=== PATIENT | female | born 1955 | race Caucasian/White ===

== ENCOUNTER 2017-12-13 11:40 | Emergency (ER) | payer BC ==
[~2017-12-13 11:40] MED LIST: ASAC400T OR; OXYC-360 PO; POTA25TA4 PO; PRED20 PO
[2017-12-13 11:43] VITALS: BP 165/88; PULSE 100; RESP 16; TEMP 97.5
[2017-12-13] MEDS ORDERED: ONDANSETRON HCL 4 MG/2 ML VIAL IVP ONE (12:15)
[2017-12-13] MEDS ORDERED: SODIUM CHLOR 0.9% 1000 ML INJ 1,000 ML IV ONE ×3 (12:15→14:15)
[2017-12-13] MEDS ORDERED: SODIUM CHLORIDE 0.9% FLUSH 10 ML FLUSH IV FLUSH PRN (12:15)
--- NOTE | 2017-12-13 12:19 | PD ---
HPI Chief Complaint: GI Complaint Time Seen by Provider: 12:07 Travel History International Travel<30 days: Yes Contact w/Intl Traveler<30days: Yes Name of Country Traveled to: [place] 12-09-17 Traveled to known affect area: No History of Present Illness HPI The patient was seen and examined in the presence of the nurse. This patient complains of feeling nauseous and having vomiting. She is worried about dehydration. She saw her primary physician this morning and was sent here. She is not having abdominal pain or fever. She has chronic diarrhea and history of ulcerative colitis. Severity is moderate. Duration 3 days. No alleviating factors. No Exacerbating factors. PFSH Past Medical History Asthma: No Autoimmune Disease: No COPD: No Diminished Hearing: No Gastrointestinal Disorders: Yes (ULCERATIVE COLITIS) Hiatal Hernia: Yes Tetanus Vaccination: Unknown Menopausal: Yes Social History Alcohol Use: Yes (2 GLASSES OF WINE PER WEEK) Tobacco Use: Yes (11/29 PPD) Substance Use: No Allergies-Medications (Allergen,Severity, Reaction): Coded Allergies: metronidazole (Unverified Allergy, Mild, 12/13/17) Reported Meds & Prescriptions Reported Meds & Active Scripts Active Reported Ondansetron (Ondansetron HCl) 8 Mg Tab 8 Mg PO TID Alprazolam 0.25 Mg Tab 0.25 Mg PO Q8H PRN Review of Systems General / Constitutional: No: Fever Eyes: No: Visual changes HENT: No: Headaches Cardiovascular: No: Chest Pain or Discomfort Respiratory: No: Shortness of Breath Gastrointestinal: Positive: Nausea, Vomiting, No: Abdominal Pain Genitourinary: No: Dysuria Musculoskeletal: No: Pain Skin: No Rash Neurologic: No: Weakness Psychiatric: No: Depression Endocrine: No: Polydipsia Hematologic/Lymphatic: No: Easy Bruising Physical Exam Narrative GENERAL: Well-nourished, well-developed patient in no apparent distress. SKIN: Focused skin assessment reveals no rash and nodules. Skin is Warm and dry. HEAD: Atraumatic. Normocephalic. EYES: Pupils equal and round. No scleral icterus. No injection or drainage. ENT: No nasal bleeding or discharge. Mucous membranes pink and moist. NECK: Trachea midline. No JVD. CARDIOVASCULAR: Regular rate and rhythm. No murmur appreciated. RESPIRATORY: No accessory muscle use. Clear to auscultation. Breath sounds equal bilaterally. GASTROINTESTINAL: Abdomen soft, non-tender, nondistended. Hepatic and splenic margins not palpable. MUSCULOSKELETAL: No obvious deformities. No clubbing. No cyanosis. No edema. NEUROLOGICAL: Awake and alert. No obvious cranial nerve deficits. Motor grossly within normal limits. Normal speech. PSYCHIATRIC: Appropriate mood and affect; insight and judgment normal. Data Data Last Documented VS Vital Signs Date Time Temp Pulse Resp B/P (MAP) Pulse Ox O2 Delivery O2 Flow Rate FiO2 12/13/17 11:43 97.5 100 16 165/88 (113) Orders Orders Complete Blood Count With Diff (12/13/17 12:14) Comprehensive Metabolic Panel (12/13/17 12:14) Lipase (12/13/17 12:14) Urinalysis - C+S If Indicated (12/13/17 12:14) Iv Access Insert/Monitor (12/13/17 12:14) NPO (12/13/17 12:14) Ondansetron Inj (Zofran Inj) (12/13/17 12:15) Sodium Chloride 0.9% Flush (Ns Flush) (12/13/17 12:15) Sodium Chlor 0.9% 1000 Ml Inj (Ns 1000 M (12/13/17 12:15) Labs Laboratory Tests Test 12/13/17 12:31 White Blood Count 11.8 TH/MM3 Red Blood Count 4.55 MIL/MM3 Hemoglobin 15.1 GM/DL Hematocrit 45.5 % Mean Corpuscular Volume 100.1 FL Mean Corpuscular Hemoglobin 33.2 PG Mean Corpuscular Hemoglobin Concent 33.1 % Red Cell Distribution Width 13.1 % Platelet Count 217 TH/MM3 Mean Platelet Volume 7.7 FL Neutrophils (%) (Auto) 88.3 % Lymphocytes (%) (Auto) 5.5 % Monocytes (%) (Auto) 5.3 % Eosinophils (%) (Auto) 0.2 % Basophils (%) (Auto) 0.7 % Neutrophils # (Auto) 10.4 TH/MM3 Lymphocytes # (Auto) 0.6 TH/MM3 Monocytes # (Auto) 0.6 TH/MM3 Eosinophils # (Auto) 0.0 TH/MM3 Basophils # (Auto) 0.1 TH/MM3 CBC Comment DIFF FINAL Differential Comment MDM Medical Decision Making Medical Screen Exam Complete: Yes Emergency Medical Condition: Yes Medical Record Reviewed: Yes Differential Diagnosis Colitis, dehydration, electrolyte abnormality Narrative Course I have reviewed the patient's electronic medical record. Reviewed her history and physical from today's earlier outpatient primary physician visit. Dipstick urine did show ketones IV placed CBC is normal BMP) the rest of the labs are pending LFTs Lipase Urinalysis I gave her IV Zofran and 1 L normal saline IV bolus Abdomen is soft and benign and nontender I suspect this patient will be able to be hydrated and discharged but Dr. Larios will review the labs and assist with disposition Solo Nath MD Dec 13, 2017 12:19
[2017-12-13 12:40] LABS: AUTOMATED NEUTROPHIL # 10.4 TH/MM3 (1.8-7.7); BASOPHIL # 0.1 TH/MM3 (0-0.2); BASOPHIL % 0.7 % (0.0-2.0); EOSINOPHIL % 0.2 % (0.0-4.0); HEMATOCRIT 45.5 % (35.0-46.0); HEMOGLOBIN 15.1 GM/DL (11.6-15.3); LYMPH % 5.5 % (9.0-44.0); LYMPHOCYTE # 0.6 TH/MM3 (1.0-4.8); MEAN CELL VOLUME 100.1 FL (80.0-100.0); MEAN CORPUSCULAR HEMOGLOBIN 33.2 PG (27.0-34.0); MEAN CORPUSCULAR HGB CONC 33.1 % (32.0-36.0); MEAN PLATELET VOLUME 7.7 FL (7.0-11.0); MONO % 5.3 % (0.0-8.0); MONOCYTE # 0.6 TH/MM3 (0-0.9); NEUT % 88.3 % (16.0-70.0); PLATELET COUNT 217 TH/MM3 (150-450); RED BLOOD COUNT 4.55 MIL/MM3 (4.00-5.30); RED CELL DISTRIBUTION WIDTH 13.1 % (11.6-17.2); WHITE BLOOD COUNT 11.8 TH/MM3 (4.0-11.0)
[2017-12-13] MEDS ORDERED: ONDA8TAB7 PO (12:47)
[2017-12-13] MEDS ORDERED: ALPR0.25 PO (12:47)
[2017-12-13 13:04] LABS: CHLORIDE 103 MEQ/L (98-107); SODIUM (NA) 140 MEQ/L (136-145)
[2017-12-13 13:07] LABS: ALBUMIN 3.2 GM/DL (3.4-5.0); CALCIUM 9.3 MG/DL (8.5-10.1); LIPASE 103 U/L (73-393)
[2017-12-13 13:08] LABS: BLOOD UREA NITROGEN 10 MG/DL (7-18); GLUCOSE,RANDOM 89 MG/DL (74-106)
[2017-12-13 13:10] LABS: ALT (GPT) 49 U/L (10-53); AST (GOT) 73 U/L (15-37); CREATININE 0.57 MG/DL (0.50-1.00); GLOMERULAR FILTRATION RATE 107 ML/MIN (>89)
[2017-12-13 13:12] LABS: TOTAL BILIRUBIN ADULT 0.6 MG/DL (0.2-1.0); TOTAL PROTEIN 7.2 GM/DL (6.4-8.2)
[2017-12-13 13:13] LABS: ALKALINE PHOSPHATASE 142 U/L (45-117)
--- NOTE | 2017-12-13 13:18 | PD ---
Physical Exam Date Seen by Provider: Dec 13, 2017 Time Seen by Provider: 13:17 Narrative The patient is a 62-year-old female who is initially evaluated by the previous physician. Please refer to the initial history, physical, diagnostic evaluation, and treatment modality plan. Data Data Last Documented VS Vital Signs Date Time Temp Pulse Resp B/P (MAP) Pulse Ox O2 Delivery O2 Flow Rate FiO2 12/13/17 14:17 94 18 137/84 (101) 97 Room Air 12/13/17 11:43 97.5 Orders Orders Complete Blood Count With Diff (12/13/17 12:14) Comprehensive Metabolic Panel (12/13/17 12:14) Lipase (12/13/17 12:14) Urinalysis - C+S If Indicated (12/13/17 12:14) Iv Access Insert/Monitor (12/13/17 12:14) NPO (12/13/17 12:14) Ondansetron Inj (Zofran Inj) (12/13/17 12:15) Sodium Chloride 0.9% Flush (Ns Flush) (12/13/17 12:15) Sodium Chlor 0.9% 1000 Ml Inj (Ns 1000 M (12/13/17 12:15) Sodium Chlor 0.9% 1000 Ml Inj (Ns 1000 M (12/13/17 13:00) Morphine Inj (Morphine Inj) (12/13/17 13:30) Sodium Chlor 0.9% 1000 Ml Inj (Ns 1000 M (12/13/17 14:15) Urine Culture (12/13/17 13:55) Ceftriaxone Inj (Rocephin Inj) (12/13/17 14:45) Ondansetron Odt (Zofran Odt) (12/13/17 15:00) Labs Laboratory Tests Test 12/13/17 12:31 12/13/17 13:55 White Blood Count 11.8 TH/MM3 Red Blood Count 4.55 MIL/MM3 Hemoglobin 15.1 GM/DL Hematocrit 45.5 % Mean Corpuscular Volume 100.1 FL Mean Corpuscular Hemoglobin 33.2 PG Mean Corpuscular Hemoglobin Concent 33.1 % Red Cell Distribution Width 13.1 % Platelet Count 217 TH/MM3 Mean Platelet Volume 7.7 FL Neutrophils (%) (Auto) 88.3 % Lymphocytes (%) (Auto) 5.5 % Monocytes (%) (Auto) 5.3 % Eosinophils (%) (Auto) 0.2 % Basophils (%) (Auto) 0.7 % Neutrophils # (Auto) 10.4 TH/MM3 Lymphocytes # (Auto) 0.6 TH/MM3 Monocytes # (Auto) 0.6 TH/MM3 Eosinophils # (Auto) 0.0 TH/MM3 Basophils # (Auto) 0.1 TH/MM3 CBC Comment DIFF FINAL Differential Comment Blood Urea Nitrogen 10 MG/DL Creatinine 0.57 MG/DL Random Glucose 89 MG/DL Total Protein 7.2 GM/DL Albumin 3.2 GM/DL Calcium Level 9.3 MG/DL Alkaline Phosphatase 142 U/L Aspartate Amino Transf (AST/SGOT) 73 U/L Alanine Aminotransferase (ALT/SGPT) 49 U/L Total Bilirubin 0.6 MG/DL Sodium Level 140 MEQ/L Potassium Level 4.0 MEQ/L Chloride Level 103 MEQ/L Carbon Dioxide Level 27.0 MEQ/L Anion Gap 10 MEQ/L Estimat Glomerular Filtration Rate 107 ML/MIN Lipase 103 U/L Urine Collection Type CLEAN CATCH Urine Color YELLOW Urine Turbidity CLEAR Urine pH 5.5 Urine Specific Lebeau 1.013 Urine Protein NEG mg/dL Urine Glucose (UA) NEG mg/dL Urine Ketones 80 OR GREATER mg/dL Urine Occult Blood NEG Urine Nitrite POS Urine Bilirubin NEG Urine Leukocyte Esterase SMALL Urine WBC 9-14 /hpf Urine Squamous Epithelial Cells > 8 /hpf Urine Renal Epithelial Cells 0-5 /hpf Urine Bacteria OCC /hpf Microscopic Urinalysis Comment CULTURE INDICATED Urine Collection Time 13:55 MDM Medical Record Reviewed: Yes Supervised Visit with TUYET: No Interpretation(s) Laboratory Tests Test 12/13/17 12:31 12/13/17 13:55 White Blood Count 11.8 TH/MM3 Red Blood Count 4.55 MIL/MM3 Hemoglobin 15.1 GM/DL Hematocrit 45.5 % Mean Corpuscular Volume 100.1 FL Mean Corpuscular Hemoglobin 33.2 PG Mean Corpuscular Hemoglobin Concent 33.1 % Red Cell Distribution Width 13.1 % Platelet Count 217 TH/MM3 Mean Platelet Volume 7.7 FL Neutrophils (%) (Auto) 88.3 % Lymphocytes (%) (Auto) 5.5 % Monocytes (%) (Auto) 5.3 % Eosinophils (%) (Auto) 0.2 % Basophils (%) (Auto) 0.7 % Neutrophils # (Auto) 10.4 TH/MM3 Lymphocytes # (Auto) 0.6 TH/MM3 Monocytes # (Auto) 0.6 TH/MM3 Eosinophils # (Auto) 0.0 TH/MM3 Basophils # (Auto) 0.1 TH/MM3 CBC Comment DIFF FINAL Differential Comment Blood Urea Nitrogen 10 MG/DL Creatinine 0.57 MG/DL Random Glucose 89 MG/DL Total Protein 7.2 GM/DL Albumin 3.2 GM/DL Calcium Level 9.3 MG/DL Alkaline Phosphatase 142 U/L Aspartate Amino Transf (AST/SGOT) 73 U/L Alanine Aminotransferase (ALT/SGPT) 49 U/L Total Bilirubin 0.6 MG/DL Sodium Level 140 MEQ/L Potassium Level 4.0 MEQ/L Chloride Level 103 MEQ/L Carbon Dioxide Level 27.0 MEQ/L Anion Gap 10 MEQ/L Estimat Glomerular Filtration Rate 107 ML/MIN Lipase 103 U/L Urine Collection Type CLEAN CATCH Urine Color YELLOW Urine Turbidity CLEAR Urine pH 5.5 Urine Specific [place]beau 1.013 Urine Protein NEG mg/dL Urine Glucose (UA) NEG mg/dL Urine Ketones 80 OR GREATER mg/dL Urine Occult Blood NEG Urine Nitrite POS Urine Bilirubin NEG Urine Leukocyte Esterase SMALL Urine WBC 9-14 /hpf Urine Squamous Epithelial Cells > 8 /hpf Urine Renal Epithelial Cells 0-5 /hpf Urine Bacteria OCC /hpf Microscopic Urinalysis Comment CULTURE INDICATED Urine Collection Time 13:55 Differential Diagnosis Differential diagnosis includes gastritis, food poisoning, gastroenteritis, pancreatitis, colitis, chronic diarrhea, lites slight abnormality, dehydration. Narrative Course The patient is a 62-year-old female who is initially evaluated by the previous physician. Please refer to the initial history, physical, diagnostic evaluation, treatment modality plan. Patient was signed out at 1 PM with laboratory evaluation and reassessment of her nausea and vomiting pending. The patient's electrolytes unremarkable. White count is minimally elevated 11.8. Patient does complain of mild epigastric pain, abdominal exam is benign. She was administer morphine for pain and received a second liter of IV fluids. UA does reveal ketones as well as continuing UTI. The patient is currently on Macrobid, she was administered 1 dose of Rocephin 1 g intravenously. She will be prescribed Zofran ODT for her nausea and will be provided a copy of her labs at discharge. She is advised to follow-up with her primary physician and return if symptoms worsen or progress. Diagnosis Primary Impression: Nausea and vomiting Qualified Codes: R11.2 - Nausea with vomiting, unspecified Additional Impressions: Dehydration UTI (urinary tract infection) Qualified Codes: N30.00 - Acute cystitis without hematuria Patient Instructions: General Instructions Additional Instruction: Continue Macrobid as prescribed by her primary physician. Zofran as needed. Plenty fluids to stay hydrated. Clear liquid diet and advance as tolerated. Return if symptoms worsen or progress. Please provide the patient a copy of her labs at discharge. Condition: Stable Clarke Larios MD Dec 13, 2017 13:18
[2017-12-13] MEDS ORDERED: MORPHINE SULFATE 4 MG/ML INJ IV PUSH ONE (13:30)
[2017-12-13 14:17] VITALS: BP 137/84; PULSE 94; RESP 18; O2SAT 97
[2017-12-13 14:28] LABS: BILIRUBIN, URINE NEG (NEG); BLOOD, URINE NEG (NEG); GLUCOSE,URINE NEG (NEG); KETONE, URINE 80 OR GREATER mg/dL (NEG); NITRITE,URINE POS (NEG); PH, URINE 5.5 (5.0-8.5); URINE LEUKOCYTE ESTERASE SMALL (NEG)
[2017-12-13 14:35] LABS: URINE COLOR YELLOW (YELLW/STRAW)
[2017-12-13 14:36] LABS: BACTERIA, URINE OCC /hpf; SQUAMOUS EPITHELIAL CELL URINE > 8 /hpf (0-5)
[2017-12-13 14:37] LABS: RENAL EPITHELIAL CELLS 0-5 /hpf
[2017-12-13] MEDS ORDERED: cefTRIAXone INJ 1,000 MG in SODIUM CHLORIDE 0.9% INJ 100 ML IV ONE (14:45)
[2017-12-13] MEDS ORDERED: ONDANSETRON ODT 4 MG TAB PO ONE (15:00)
[2017-12-13] MEDS ORDERED: ZOFR4TAB3 SL (16:12)
[2017-12-13 16:14] VITALS: BP 146/84
== END 2017-12-13 16:17 | disposition home or self-care (01) ==
LOC: PHED 11:40
DX: R11.2 Nausea with vomiting, unspecified (principal); E86.0 Dehydration; N30.00 Acute cystitis without hematuria; K51.90 Ulcerative colitis, unspecified, without complications; F17.200 Nicotine dependence, unspecified, uncomplicated
CPT/HCPCS: 80053; 81001; 82977; 83690; 85025; 87086; 96360; 99283; J0696; J2270; J2405; J7030